=== PATIENT | female | born 1975 | race African-American/Black ===

== ENCOUNTER 2024-02-02 01:57 | Emergency (ER) | payer OTHER ==
[~2024-02-02] VITALS: Ht 177.8 cm; Wt 68.0 kg
[2024-02-02 02:02] VITALS: TEMP 98.1; O2SAT 99
[2024-02-02 02:55] LABS: BASOPHILS % 0.6 % (0.0-2.0); EOSINOPHILS % 1.4 % (0.0-5.0); HEMATOCRIT. 33.7 % (36.0-48.0); HEMOGLOBIN. 10.4 g/dL (12.0-16.0); LYMPHOCYTES % 34.1 % (20.0-50.0); MEAN CORPUSCULAR HEMOGLOBIN 28.8 pg (28.0-32.0); MEAN PLATELET VOLUME 8.3 fl (7.4-10.4); MONOCYTES % 13.8 % (2.0-8.0); NEUTROPHILS % 50.1 % (40.0-76.0); PLATELET 165 x1000/uL (130-400); RED BLOOD CELL COUNT 3.62 mill/uL (4.2-5.4); RED CELL DISTRIBUTION WIDTH 17.3 % (11.6-14.6); WHITE BLOOD COUNT 3.3 x1000/uL (4.5-11.0)
[2024-02-02 03:03] LABS: CHLORIDE 108 mEq/L (98-107); POTASSIUM 3.7 mEq/L (3.5-5.1); SODIUM 142 mEq/L (136-145)
[2024-02-02 03:04] LABS: CALCIUM 9.7 mg/dL (8.7-10.4); CARBON DIOXIDE 26 mEq/L (21-32)
[2024-02-02 03:09] LABS: CREATININE 0.7 mg/dL (0.6-1.0); GLUCOSE 111 mg/dL (70-105); UREA NITROGEN BLOOD 11 mg/dL (9-23)
[2024-02-02 04:21] LABS: CLARITY URINE CLOUDY (CLEAR); COLOR URINE DARK YELLOW (YELLOW); GLUCOSE URINE NEGATIVE (NEGATIVE); KETONES URINE 1+ (NEGATIVE); LEUKOCYTE ESTERASE URINE 1+ (NEGATIVE); NITRITE URINE NEGATIVE (NEGATIVE); OCCULT BLOOD URINE NEGATIVE (NEGATIVE); PH URINE 5.5 (4.5-8.0); PROTEIN URINE 1+ (NEGATIVE); SPECIFIC GRAVITY URINE 1.038 (1.005-1.030)
[2024-02-02 05:11] LABS: SQUAMOUS EPITHELIAL CELL URINE 2+ /lpf (RARE/1+)
[2024-02-02 05:17] LABS: BACTERIA URINE 2+; RBC URINE 0-2 /hpf (0-2)
[2024-02-02] MEDS: LACTULOSE 20G/30ML UDC PO STA ×2 (05:58→05:59)
[2024-02-02 05:59] VITALS: BP 144/82; PULSE 75; RESP 16
[2024-02-02] MEDS: OXYCODONE HCL/ACETAMINOPHEN 5/325MG TABLET PO STA (05:59)
== END 2024-02-02 07:24 | disposition home or self-care (01) ==
LOC: ER 01:57
DX: R10.84 Generalized abdominal pain (principal); Z98.890 Other specified postprocedural states
CPT/HCPCS: 80048; 81003; 83690; 85025; 87086; 36415; 74176; 99284; Z7610

== ENCOUNTER 2024-02-03 07:05 | Emergency (ER) | payer OTHER ==
[~2024-02-03] VITALS: Ht 167.6 cm; Wt 70.0 kg
[2024-02-03 07:08] VITALS: O2SAT 99
[2024-02-03] MEDS ORDERED: ACETAMINOPHEN 1000MG/100ML 100 ML IV ONE (07:15)
[2024-02-03] MEDS: SODIUM CHLORIDE 0.9% 1,000 ML IV ONE (07:36)
[2024-02-03] MEDS: OXYCODONE HCL/ACETAMINOPHEN 5/325MG TABLET PO ONE (07:39)
[2024-02-03] MEDS: LACTULOSE 20G/30ML UDC PO ONE (07:40)
[2024-02-03 08:14] LABS: HEMATOCRIT. 33.2 % (36.0-48.0); HEMOGLOBIN. 10.1 g/dL (12.0-16.0); MEAN CORPUSCULAR HEMOGLOBIN 28.6 pg (28.0-32.0); MEAN CORPUSCULAR HGB CONC 30.3 g/dL (31.0-37.0); MEAN CORPUSCULAR VOLUME 94.4 fL (81.0-99.0); MEAN PLATELET VOLUME 8.5 fl (7.4-10.4); PLATELET 169 x1000/uL (130-400); RED BLOOD CELL COUNT 3.52 mill/uL (4.2-5.4); RED CELL DISTRIBUTION WIDTH 16.7 % (11.6-14.6); WHITE BLOOD COUNT 3.2 x1000/uL (4.5-11.0)
[2024-02-03 08:22] LABS: CHLORIDE 107 mEq/L (98-107); DIFFERENTIAL COMMENT 1; SODIUM 143 mEq/L (136-145)
[2024-02-03 08:23] LABS: CALCIUM 9.5 mg/dL (8.7-10.4); CARBON DIOXIDE 27 mEq/L (21-32)
[2024-02-03 08:24] LABS: INR 1.1; PROTHROMBIN TIME 11.9 sec (9.6-11.0)
[2024-02-03 08:28] LABS: CREATININE 0.6 mg/dL (0.6-1.0); GLUCOSE 102 mg/dL (70-105); UREA NITROGEN BLOOD 10 mg/dL (9-23)
[2024-02-03 08:29] LABS: AMMONIA < 17 uMol/L (<32)
[2024-02-03 08:30] LABS: ALANINE AMINOTRANSFERASE 14 IU/L (10-49); ALBUMIN 3.8 g/dL (3.2-4.8); ASPARTATE AMINOTRANSFERASE 32 IU/L (<34); BILIRUBIN DIRECT 0.2 mg/dL (<=3.0); BILIRUBIN TOTAL 0.5 mg/dL (0.1-1.0); PROTEIN TOTAL 7.3 g/dL (6.0-8.3)
[2024-02-03 08:37] LABS: HCG SCREEN NEGATIVE
[2024-02-03 10:50] LABS: CLARITY URINE CLOUDY (CLEAR); COLOR URINE DARK YELLOW (YELLOW); GLUCOSE URINE NEGATIVE (NEGATIVE); KETONES URINE TRACE (NEGATIVE); LEUKOCYTE ESTERASE URINE 1+ (NEGATIVE); NITRITE URINE NEGATIVE (NEGATIVE); OCCULT BLOOD URINE NEGATIVE (NEGATIVE); PROTEIN URINE NEGATIVE (NEGATIVE); SPECIFIC GRAVITY URINE 1.034 (1.005-1.030)
[2024-02-03 11:07] LABS: BACTERIA URINE 2+; RBC URINE 0-2 /hpf (0-2); SQUAMOUS EPITHELIAL CELL URINE 2+ /lpf (RARE/1+); YEAST URINE NONE SEEN
[2024-02-03] MEDS ORDERED: ONDANSETRON HCL 4MG/2ML INJ IV PRN (11:15)
[2024-02-03] MEDS: DIPHENHYDRAMINE 25MG CAPSULE PO SCH (12:13)
[2024-02-03] MEDS: NA PHOS,M-B/NA PHOS,DI-BA ENEMA 118ML PR ONE (12:13)
[2024-02-03 12:36] VITALS: BP 154/95; PULSE 83; RESP 22; TEMP 37.28076; O2SAT 99
[2024-02-03 12:46] LABS: ANISOCYTOSIS 1+; PLATELET ESTIMATE NORMAL
== END 2024-02-03 13:24 | disposition short-term general hospital (02) ==
LOC: ER 07:05
DX: K59.00 Constipation, unspecified (principal); Z88.6 Allergy status to analgesic agent
CPT/HCPCS: 99285; 96360; 80076; 80048; 81003; 82140; 84703; 83690; 85025; 85610; 87086; 36415; 74018; Q0163; J7030; J0131

== ENCOUNTER 2024-02-26 19:30 | Emergency (ER) | payer MEDICAID, OTHER ==
[~2024-02-26] VITALS: Ht 175.3 cm; Wt 73.0 kg
[2024-02-26 19:46] VITALS: TEMP 98.6; O2SAT 98
[2024-02-26 20:48] LABS: BASOPHILS % 0.5 % (0.0-2.0); EOSINOPHILS % 0.9 % (0.0-5.0); HEMATOCRIT. 34.7 % (36.0-48.0); HEMOGLOBIN. 11.4 g/dL (12.0-16.0); LYMPHOCYTES % 26.1 % (20.0-50.0); MEAN CORPUSCULAR HEMOGLOBIN 29.2 pg (28.0-32.0); MEAN CORPUSCULAR HGB CONC 32.8 g/dL (31.0-37.0); MEAN PLATELET VOLUME 8.3 fl (7.4-10.4); MONOCYTES % 6.6 % (2.0-8.0); NEUTROPHILS % 65.9 % (40.0-76.0); PLATELET 90 x1000/uL (130-400); RED CELL DISTRIBUTION WIDTH 16.2 % (11.6-14.6); WHITE BLOOD COUNT 4.4 x1000/uL (4.5-11.0)
[2024-02-26 20:54] LABS: CHLORIDE 103 mEq/L (98-107); POTASSIUM 3.6 mEq/L (3.5-5.1); SODIUM 138 mEq/L (136-145)
[2024-02-26 20:55] LABS: CARBON DIOXIDE 24 mEq/L (21-32)
[2024-02-26 20:56] LABS: CALCIUM 9.9 mg/dL (8.7-10.4)
[2024-02-26 21:00] LABS: CREATININE 0.7 mg/dL (0.6-1.0); GLUCOSE 116 mg/dL (70-105)
[2024-02-26 21:01] LABS: UREA NITROGEN BLOOD 12 mg/dL (9-23)
[2024-02-26] MEDS ORDERED: LACT-390 MT (21:16)
[2024-02-26] MEDS: LACTULOSE 20G/30ML UDC PO ONE (21:40)
[2024-02-26 22:11] VITALS: BP 123/60; PULSE 86; RESP 15; O2SAT 99
== END 2024-02-26 22:12 | disposition home or self-care (01) ==
LOC: ER 19:30
DX: M79.10 Myalgia, unspecified site (principal); K74.60 Unspecified cirrhosis of liver; Z76.0 Encounter for issue of repeat prescription; Z88.6 Allergy status to analgesic agent
CPT/HCPCS: 36415; 80048; 85025; 99283

== ENCOUNTER 2024-08-28 23:30 | Inpatient (IN) | payer MEDICAID ==
[~2024-08-28] VITALS: Ht 167.6 cm; Wt 68.0 kg
[~2024-08-28 23:30] MED LIST: LACT-390 MT
[2024-08-29 01:10] LABS: BASOPHILS % 0.5 % (0.0-2.0); DIFFERENTIAL COMMENT 0; EOSINOPHILS % 0.3 % (0.0-5.0); HEMATOCRIT. 29.7 % (36.0-48.0); HEMOGLOBIN. 9.6 g/dL (12.0-16.0); LYMPHOCYTES % 16.3 % (20.0-50.0); MEAN CORPUSCULAR HEMOGLOBIN 32.3 pg (28.0-32.0); MEAN CORPUSCULAR HGB CONC 32.3 g/dL (31.0-37.0); MEAN CORPUSCULAR VOLUME 100.1 fL (81.0-99.0); MEAN PLATELET VOLUME 8.3 fl (7.4-10.4); MONOCYTES % 5.7 % (2.0-8.0); NEUTROPHILS % 77.2 % (40.0-76.0); PLATELET 77 x1000/uL (130-400); RED BLOOD CELL COUNT 2.97 mill/uL (4.2-5.4); WHITE BLOOD COUNT 6.4 x1000/uL (4.5-11.0)
[2024-08-29 01:21] LABS: CHLORIDE 96 mEq/L (98-107); POTASSIUM 3.5 mEq/L (3.5-5.1); SODIUM 135 mEq/L (136-145)
[2024-08-29 01:22] LABS: CARBON DIOXIDE 23 mEq/L (21-32)
[2024-08-29 01:23] LABS: CALCIUM 7.4 mg/dL (8.7-10.4)
[2024-08-29 01:24] LABS: INR 1.5; PARTIAL THROMBOPLASTIN TIME 32.6 sec (23.4-31.0); PROTHROMBIN TIME 15.9 sec (9.6-11.0)
[2024-08-29 01:25] LABS: HCG SCREEN NEGATIVE
[2024-08-29 01:27] LABS: CREATININE 0.6 mg/dL (0.6-1.0); GLUCOSE 120 mg/dL (70-105)
[2024-08-29 01:28] LABS: UREA NITROGEN BLOOD < 5 mg/dL (9-23)
[2024-08-29 01:35] LABS: TROPONIN I HIGH SENSITIVITY < 4 ng/L (3.0-34)
[2024-08-29 01:37] LABS: ETHANOL BLOOD 308 mg/dL (<10)
[2024-08-29] MEDS ORDERED: NA PHOS,M-B/NA PHOS,DI-BA ENEMA 118ML PR PRN (04:15)
[2024-08-29] MEDS ORDERED: MAGNESIUM/ALUMINUM HYDROXIDE/SIMETHICONE 30ML UDC PO PRN (04:15)
[2024-08-29] MEDS ORDERED: CLONIDINE 0.1MG TABLET PO PRN (04:15)
[2024-08-29] MEDS ORDERED: LORAZEPAM 2MG/ML UD SYRINGE IV PRN (04:15)
[2024-08-29] MEDS ORDERED: GUAIFENESIN 200MG/10ML SUGAR FREE UDC PO PRN (04:15)
[2024-08-29] MEDS ORDERED: DOCUSATE SODIUM 100MG CAPSULE PO PRN (04:15)
[2024-08-29] MEDS ORDERED: DIPHENHYDRAMINE 50MG/ML VIAL IV PRN (04:15)
[2024-08-29] MEDS: MORPHINE SULFATE 2 MG/ML INJ (NOT FOR IM USE) IV ONE (04:29)
[2024-08-29] MEDS: SODIUM CHLORIDE 0.45% 1,000 ML IV SCH (06:05)
[2024-08-29 06:10] VITALS: BP 100/64; PULSE 77; RESP 16; TEMP 36.7
[2024-08-29 08:10] VITALS: BP 100/65; PULSE 88; RESP 18; TEMP 36.4; O2SAT 97
[2024-08-29] MEDS: ONDANSETRON HCL 4MG/2ML INJ IV PRN (09:34)
[2024-08-29] MEDS ORDERED: IBUPROFEN 600MG TABLET PO PRN (11:30)
[2024-08-29 11:52] LABS: TROPONIN I HIGH SENSITIVITY < 4 ng/L (3.0-34)
[2024-08-29 12:00] VITALS: BP 108/71; PULSE 100; RESP 17; TEMP 36.5; O2SAT 100
[2024-08-29 15:54] LABS: TROPONIN I HIGH SENSITIVITY < 4 ng/L (3.0-34)
[2024-08-29 16:00] VITALS: BP 113/79; PULSE 100; RESP 18; TEMP 36.6; O2SAT 100
[2024-08-29] MEDS: DICLOFENAC SODIUM 75MG DR TABLET PO SCH (16:38)
[2024-08-29 20:00] VITALS: BP 101/57; PULSE 109; RESP 18; TEMP 37; O2SAT 100
[2024-08-29] MEDS ORDERED: DICLOFENAC SODIUM 75MG DR TABLET PO SCH (21:00)
[2024-08-29 22:07] LABS: IRON 86 ug/dL (50-170)
[2024-08-29 22:10] LABS: BILIRUBIN DIRECT 7.4 mg/dL (<=3.0); TOTAL IRON BINDING CAPACITY 137 ug/dl (250-425)
[2024-08-29 22:14] LABS: FOLIC ACID (FOLATE) SERUM 7.18 ng/mL (>5.38); VITAMIN B12 SERUM 1572 pg/mL (211-911)
[2024-08-29 22:17] LABS: AMMONIA 202 uMol/L (<32)
[2024-08-29 22:25] LABS: HEPATITIS B SURFACE ANTIGEN NEGATIVE (Negative)
[2024-08-29 22:45] LABS: HEPATITIS A AB IGM NEGATIVE (Negative)
[2024-08-29 22:46] LABS: HEPATITIS B CORE AB IGM NEGATIVE (Negative)
[2024-08-29 22:47] LABS: HEPATITIS C AB NON REACTIVE (Neg) (Negative)
[2024-08-30] VITALS (7 sets, daily range): BP systolic 104–205; BP diastolic 56–78; PULSE 89–103; RESP 17–19; TEMP 36.6–38.2; O2SAT 97–100
[2024-08-30 07:42] LABS: CARBON DIOXIDE 29 mEq/L (21-32); CHLORIDE 100 mEq/L (98-107); POTASSIUM 3.3 mEq/L (3.5-5.1); SODIUM 135 mEq/L (136-145)
[2024-08-30 07:43] LABS: CALCIUM 7.7 mg/dL (8.7-10.4)
[2024-08-30 07:47] LABS: CREATININE 0.6 mg/dL (0.6-1.0); GLUCOSE 119 mg/dL (70-105)
[2024-08-30 07:48] LABS: UREA NITROGEN BLOOD < 5 mg/dL (9-23)
[2024-08-30 07:49] LABS: ALANINE AMINOTRANSFERASE 27 IU/L (10-49); ALBUMIN 2.5 g/dL (3.2-4.8); ASPARTATE AMINOTRANSFERASE 139 IU/L (<34)
[2024-08-30 07:50] LABS: BILIRUBIN DIRECT 7.9 mg/dL (<=3.0); BILIRUBIN TOTAL 11.2 mg/dL (0.1-1.0)
[2024-08-30 08:40] LABS: BASOPHILS % 0.7 % (0.0-2.0); EOSINOPHILS % 0.7 % (0.0-5.0); HEMATOCRIT. 24.8 % (36.0-48.0); HEMOGLOBIN. 8.5 g/dL (12.0-16.0); LYMPHOCYTES % 22.7 % (20.0-50.0); MEAN CORPUSCULAR HEMOGLOBIN 33.4 pg (28.0-32.0); MEAN CORPUSCULAR HGB CONC 34.4 g/dL (31.0-37.0); MEAN CORPUSCULAR VOLUME 97.3 fL (81.0-99.0); MEAN PLATELET VOLUME 7.9 fl (7.4-10.4); MONOCYTES % 5.6 % (2.0-8.0); NEUTROPHILS % 70.3 % (40.0-76.0); PLATELET 58 x1000/uL (130-400); RED BLOOD CELL COUNT 2.55 mill/uL (4.2-5.4); WHITE BLOOD COUNT 4.3 x1000/uL (4.5-11.0)
[2024-08-30] MEDS: LACTULOSE 20G/30ML UDC PO SCH ×2 (11:53→17:21)
[2024-08-30] MEDS: POTASSIUM CHLORIDE 20MEQ TABLET SR PO NR (11:59)
[2024-08-30] MEDS: MAGNESIUM 4 G PREMIX 100 ML IV SCH (13:44)
[2024-08-30] MEDS: LORAZEPAM 2MG/ML UD SYRINGE IV PRN (17:22)
[2024-08-31] VITALS: BP 110/65; PULSE 90; RESP 18; TEMP 36.8; O2SAT 99
[2024-08-31 04:00] VITALS: BP 110/61; PULSE 89; RESP 19; TEMP 36.2; O2SAT 98
[2024-08-31 07:10] LABS: AMMONIA 169 uMol/L (<32)
[2024-08-31 07:24] LABS: BASOPHILS % 1.1 % (0.0-2.0); EOSINOPHILS % 0.9 % (0.0-5.0); HEMATOCRIT. 25.5 % (36.0-48.0); HEMOGLOBIN. 8.4 g/dL (12.0-16.0); LYMPHOCYTES % 20.4 % (20.0-50.0); MEAN CORPUSCULAR HEMOGLOBIN 32.7 pg (28.0-32.0); MEAN CORPUSCULAR VOLUME 98.9 fL (81.0-99.0); MEAN PLATELET VOLUME 8.4 fl (7.4-10.4); MONOCYTES % 6.2 % (2.0-8.0); NEUTROPHILS % 71.4 % (40.0-76.0); PLATELET 61 x1000/uL (130-400); RED BLOOD CELL COUNT 2.58 mill/uL (4.2-5.4); RED CELL DISTRIBUTION WIDTH 18.1 % (11.6-14.6)
[2024-08-31 07:28] LABS: CHLORIDE 103 mEq/L (98-107); POTASSIUM 3.2 mEq/L (3.5-5.1); SODIUM 138 mEq/L (136-145)
[2024-08-31 07:29] LABS: CALCIUM 8.4 mg/dL (8.7-10.4); CARBON DIOXIDE 27 mEq/L (21-32)
[2024-08-31 07:34] LABS: GLUCOSE 121 mg/dL (70-105); UREA NITROGEN BLOOD 6 mg/dL (9-23)
[2024-08-31 07:36] LABS: ALANINE AMINOTRANSFERASE 25 IU/L (10-49); ALBUMIN 2.6 g/dL (3.2-4.8); ASPARTATE AMINOTRANSFERASE 108 IU/L (<34); BILIRUBIN DIRECT 8.9 mg/dL (<=3.0); BILIRUBIN TOTAL 12.6 mg/dL (0.1-1.0); PROTEIN TOTAL 6.2 g/dL (6.0-8.3)
[2024-08-31 07:39] LABS: CREATININE 0.9 mg/dL (0.6-1.0)
[2024-08-31 08:00] VITALS: BP 110/65; PULSE 100; RESP 18; TEMP 37.5; O2SAT 95
[2024-08-31] MEDS: FOLIC ACID 1MG TABLET PO SCH (10:11)
[2024-08-31] MEDS: THIAMINE HCL 100MG TABLET PO SCH (10:11)
[2024-08-31 12:00] VITALS: BP 100/64; PULSE 100; RESP 17; TEMP 37.4; O2SAT 100
[2024-08-31] MEDS: POTASSIUM CHLORIDE 20MEQ TABLET SR PO NR (13:41)
[2024-08-31 15:28] VITALS: BP 126/72; PULSE 97; TEMP 98; O2SAT 98
[2024-08-31 16:00] VITALS: BP 114/52; PULSE 88; RESP 17; TEMP 37.5; O2SAT 97
[2024-09-12] MEDS ORDERED: LACT-390 MT (01:48)
== END 2024-08-31 20:39 | disposition home or self-care (01) | DRG 280 ==
LOC: ER 23:30 → EDBEDREQ 23:55 → 8WST 08-29 03:36 → EDBEDREQ 08-29 03:38 → ENRESERV 08-29 04:39
PROVIDERS: ADMIT Internal Medicine; ATTEND Internal Medicine
DX: K70.30 Alcoholic cirrhosis of liver without ascites (principal); E11.22 Type 2 diabetes mellitus with diabetic chronic kidney disease; R62.7 Adult failure to thrive; E86.0 Dehydration; D53.9 Nutritional anemia, unspecified; F10.129 Alcohol abuse with intoxication, unspecified; I12.9 Hypertensive chronic kidney disease with stage 1 through stage 4 chronic kidney disease, or unspecified chronic kidney disease; K86.1 Other chronic pancreatitis; N18.9 Chronic kidney disease, unspecified; Z88.6 Allergy status to analgesic agent; Z90.49 Acquired absence of other specified parts of digestive tract; Z90.710 Acquired absence of both cervix and uterus; Z98.84 Bariatric surgery status; Z88.8 Allergy status to other drugs, medicaments and biological substances; Z68.24 Body mass index [BMI] 24.0-24.9, adult
CPT/HCPCS: 36415; 71045; 76700; 80048; 80076; 80320; 82140; 82248; 82607; 82746; 83540; 83550; 83735; 83880; 84484; 84703; 85025; 86705; 86709; 87340; 93005; 99285; A4606; J2060; J2270; J2405; J3475; G0480